=== PATIENT | female | born 1985 | race Caucasian/White ===

== ENCOUNTER 2019-07-24 13:00 | Emergency (ER) | payer BC, OTHER ==
[~2019-07-24] VITALS: Ht 160 cm; Wt 81.2 kg
[2019-07-24 13:06] VITALS: BP 125/73
[2019-07-24] MEDS ORDERED: OMEPRAZOLE 20 M20 M1 PO (14:14)
== END 2019-07-24 14:17 | disposition home or self-care (01) ==
LOC: ER 13:00
DX: S27.818A Other injury of esophagus (thoracic part), initial encounter (principal); G43.909 Migraine, unspecified, not intractable, without status migrainosus; X58.XXXA Exposure to other specified factors, initial encounter; Y92.89 Other specified places as the place of occurrence of the external cause; Y93.89 Activity, other specified; Y99.8 Other external cause status